=== PATIENT | female | born 1940 | race Caucasian/White ===

== ENCOUNTER → 2016-11-16 | Outpatient (CLI) | payer MEDICARE, BC ==
[~2016-11-16] MED LIST: ASPIRIN PO; ASPIRINEC PO; BISOPROLOL; BISOPROLOL FUMA10 MG; BISOPROLOL PO; BISOPROLOL/HCTZ1 TA3 PO; LOPID600 MG PO; METFORMIN PO; NABUMETONE PO; PROZAC PO; TRICOR PO; VITAMIN D2000 UNIT PO; ZOCOR PO; [UNRECOGNIZED DRUG - OTHER]
== END | disposition home or self-care (01) ==
LOC: CSSDAY 07:01
DX: N39.0 Urinary tract infection, site not specified (principal); Z79.2 Long term (current) use of antibiotics
CPT/HCPCS: 96372; J1335

== ENCOUNTER → 2016-11-17 | Outpatient (CLI) | payer MEDICARE, BC | END | disposition home or self-care (01) | LOC: CSSDAY 06:58 | DX: N39.0 Urinary tract infection, site not specified (principal); Z79.2 Long term (current) use of antibiotics | CPT/HCPCS: 96372; J1335 ==

== ENCOUNTER → 2016-11-18 | Outpatient (CLI) | payer MEDICARE, BC | END | disposition home or self-care (01) | LOC: CSSDAY 07:02 | DX: N39.0 Urinary tract infection, site not specified (principal); Z79.2 Long term (current) use of antibiotics | CPT/HCPCS: 96372; J1335 ==

== ENCOUNTER → 2016-11-19 | Outpatient (CLI) | payer MEDICARE, BC | END | disposition home or self-care (01) | LOC: CSSDAY 06:44 | DX: N39.0 Urinary tract infection, site not specified (principal); Z79.2 Long term (current) use of antibiotics | CPT/HCPCS: 96372; J1335 ==

== ENCOUNTER → 2016-11-20 | Outpatient (CLI) | payer MEDICARE, BC | END | disposition home or self-care (01) | LOC: CSSDAY 06:46 | DX: N39.0 Urinary tract infection, site not specified (principal); Z79.2 Long term (current) use of antibiotics | CPT/HCPCS: 96372; J1335 ==

== ENCOUNTER → 2017-01-13 | Outpatient (CLI) | payer MEDICARE, BC | END | disposition home or self-care (01) | LOC: CSSDAY 13:12 | DX: N39.0 Urinary tract infection, site not specified (principal); Z79.2 Long term (current) use of antibiotics | CPT/HCPCS: 96365; J1335 ==

== ENCOUNTER → 2017-01-14 | Outpatient (CLI) | payer MEDICARE, BC | END | disposition home or self-care (01) | LOC: CSSDAY 08:23 | DX: N39.0 Urinary tract infection, site not specified (principal); Z79.2 Long term (current) use of antibiotics | CPT/HCPCS: 96365; J1335 ==

== ENCOUNTER → 2017-01-15 | Outpatient (CLI) | payer MEDICARE, BC | END | disposition home or self-care (01) | LOC: CSSDAY 08:47 | DX: N39.0 Urinary tract infection, site not specified (principal); Z79.2 Long term (current) use of antibiotics | CPT/HCPCS: 96365; J1335 ==

== ENCOUNTER → 2017-01-16 | Outpatient (CLI) | payer MEDICARE, BC | END | disposition home or self-care (01) | LOC: CSSDAY 08:00 | DX: N39.0 Urinary tract infection, site not specified (principal); Z79.2 Long term (current) use of antibiotics; R35.0 Frequency of micturition; R39.15 Urgency of urination | CPT/HCPCS: 96365; J1335 ==

== ENCOUNTER → 2017-01-17 | Outpatient (CLI) | payer MEDICARE, BC | END | disposition home or self-care (01) | LOC: CSSDAY 07:50 | DX: N39.0 Urinary tract infection, site not specified (principal); Z79.2 Long term (current) use of antibiotics; R35.0 Frequency of micturition; N39.41 Urge incontinence | CPT/HCPCS: 96365; J1335 ==

== ENCOUNTER → 2017-01-18 | Outpatient (CLI) | payer MEDICARE, BC | END | disposition home or self-care (01) | LOC: CSSDAY 07:00 | DX: N39.0 Urinary tract infection, site not specified (principal); Z79.2 Long term (current) use of antibiotics; R35.0 Frequency of micturition; N39.41 Urge incontinence | CPT/HCPCS: 96365; J1335 ==

== ENCOUNTER → 2017-01-19 | Outpatient (CLI) | payer MEDICARE, BC | END | disposition home or self-care (01) | LOC: CSSDAY 06:53 | DX: N39.0 Urinary tract infection, site not specified (principal); Z79.2 Long term (current) use of antibiotics; R35.0 Frequency of micturition; N39.41 Urge incontinence | CPT/HCPCS: 96365; J1335 ==

== ENCOUNTER → 2017-01-20 | Outpatient (CLI) | payer MEDICARE, BC | END | disposition home or self-care (01) | LOC: CSSDAY 08:46 | DX: N39.0 Urinary tract infection, site not specified (principal); Z79.2 Long term (current) use of antibiotics; N39.41 Urge incontinence; R35.0 Frequency of micturition | CPT/HCPCS: 96365; J1335 ==

== ENCOUNTER → 2017-01-21 | Outpatient (CLI) | payer MEDICARE, BC | END | disposition home or self-care (01) | LOC: CSSDAY 08:16 | DX: N39.0 Urinary tract infection, site not specified (principal); Z79.2 Long term (current) use of antibiotics; N39.41 Urge incontinence; R35.0 Frequency of micturition | CPT/HCPCS: 96365; J1335 ==

== ENCOUNTER → 2017-01-22 | Outpatient (CLI) | payer MEDICARE, BC | END | disposition home or self-care (01) | LOC: CSSDAY 10:06 | DX: N39.0 Urinary tract infection, site not specified (principal); Z79.2 Long term (current) use of antibiotics; R35.0 Frequency of micturition; R39.15 Urgency of urination | CPT/HCPCS: 96365; J1335 ==